=== PATIENT | female | born 1985 | race Caucasian/White ===

== ENCOUNTER 2016-04-15 01:31 | Emergency (ER) | payer MEDICAID ==
[~2016-04-15] VITALS: Wt 69.0 kg
[~2016-04-15 01:31] MED LIST: ACET500T98; HYDR-902 PO; ONDA4TAB14 PO
[2016-04-15 02:06] LABS: URINE BLOOD (Dip) POC 2+ (NEGATIVE)
[2016-04-15 02:46] VITALS: BP 123/72; PULSE 70; RESP 16; TEMP 98.6
--- NOTE | 2016-04-15 02:46 | ERD ---
ER Documentation Chief Complaint Date/Time DATE: 04/15/16 TIME: 02:44 Chief Complaint painful/frequent urination x 4 hours HPI 30-year-old female presents here in emergency department for complaints of dysuria, urinary urgency and frequency started today. Patient is complaining of pain, burning pain, 4/10 scale, is worse upon urination. Patient denies any vaginal itching or vaginal discharge. Patient denies any flank pain. Patient denies any nausea or vomiting. Patient denies any abdominal pain. Patient did not take any medications to help with symptoms. ROS All systems reviewed and are negative except as per history of present illness. Medications Home Meds Reported Medications [none] Unknown Strength No Conflict Check 04/15/16 Allergies Allergies: Coded Allergies: No Known Allergy (Verified , 04/15/16) PMhx/Soc Medical and Surgical Hx: pt denies Medical Hx, pt denies Surgical Hx History of Surgery: No Anesthesia Reaction: No Hx Neurological Disorder: No Hx Respiratory Disorders: No Hx Cardiac Disorders: No Hx Psychiatric Problems: No Hx Miscellaneous Medical Probl: No Hx Alcohol Use: No Hx Substance Use: No Hx Tobacco Use: No Smoking Status: Never smoker FmHx Family History: No coronary disease, No diabetes, No other Physical Exam Vitals Vital Signs Date Time Temp Pulse Resp B/P Pulse Ox O2 Delivery O2 Flow Rate FiO2 04/15/16 01:34 97.6 81 20 148/88 98 Physical Exam GENERAL: The patient is well developed and appropriate for usual state of health, in no apparent distress. CHEST: Clear to auscultation bilaterally. There are no rales, wheezes or rhonchi. HEART: Regular rate and rhythm. No murmurs, clicks, rubs or gallops. No S3 or S4. ABDOMEN: Soft, nontender and nondistended. Good bowel sounds. No rebound or guarding. No gross peritonitis. No gross organomegaly or masses. No Cast sign or McBurney point tenderness. BACK: No midline or flank tenderness. EXTREMITIES: Equal pulses bilaterally. There is no peripheral clubbing, cyanosis or edema. No focal swelling or erythema. Full range of motion. Grossly neurovascularly intact. NEURO: Alert and oriented. Cranial nerves 2-12 intact. Motor strength in all 4 extremities with 5/5 strength. Sensation grossly intact. Normal speech and gait. SKIN: There is no apparent rash or petechia. The skin is warm and dry. HEMATOLOGIC AND LYMPHATIC: There is no evidence of excessive bruising or lymphedema. No gross cervical, axillary, or inguinal lymphadenopathy. Results 24 hrs Laboratory Tests Test 04/15/16 02:08 Bedside Urine Blood 2+ Bedside Urine Glucose (UA) Negative Bedside Urine Ketones (LAB) Negative Bedside Urine Leukocyte Esterase (L 1+ Bedside Urine Nitrite (LAB) Negative Bedside Urine Protein (LAB) Negative Bedside Urine pH (LAB) 6.5 Urine test is negative. Procedures/MDM Medical Decision Making: Patients symptoms are consistent with urinary tract infection. There is low suspicion for pyelonephritis. There is low suspicion for abdominal emergencies at this time. Patients abdominal exam is normal. There is low suspicion for sepsis. Patient appears well and is hemodynamically stable. Prescription was given for Macrobid, Pyridium, is advised to follow-up with her doctor in 2-3 days for reevaluation of symptoms. Patient was advised to return to emergency department for any worsening symptoms. Departure Diagnosis: Primary Impression: UTI (urinary tract infection) Urinary tract infection type: acute cystitis Hematuria presence: with hematuria Qualified Code: N30.01 - Acute cystitis with hematuria Condition: Stable Patient Instructions: Understanding Urinary Tract Infections (UTIs) ALECIA ROBISON NP Apr 15, 2016 02:46
[2016-04-15] MEDS ORDERED: NITR-58 PO (02:47)
[2016-04-15] MEDS ORDERED: PHEN-538 PO (02:47)
== END 2016-04-15 02:50 | disposition home or self-care (01) ==
LOC: FTE 01:31
DX: N30.01 Acute cystitis with hematuria (principal)
CPT/HCPCS: 81003; Z7502; 99283

== ENCOUNTER 2017-09-29 04:15 | Emergency (ER) | END 2017-09-29 04:49 | disposition home or self-care (01) ==

== ENCOUNTER 2018-05-27 17:45 | Emergency (ER) | payer MEDICAID ==
[~2018-05-27] VITALS: Ht 152.4 cm; Wt 68.4 kg
[~2018-05-27 17:45] MED LIST changes: +HYDR-3980 PO; -HYDR-902 PO; +NITR-58 PO; +PHEN-538 PO
[2018-05-27 17:51] VITALS: BP 126/83; PULSE 64; RESP 19; Ht 152.4 cm; Wt 68.4 kg
[2018-05-27] MEDS ORDERED: NITR-58 PO (18:21)
[2018-05-27] MEDS ORDERED: IBUP-1542 PO (18:21)
[2018-05-27] MEDS ORDERED: IBUPROFEN 600 MG TAB PO ONE (18:30)
--- NOTE | 2018-05-27 18:43 | ERD ---
ER Documentation Chief Complaint Chief Complaint painful urination x 2 days, diarrhea HPI 33-year-old female previously healthy presenting with burning with urination and suprapubic pain for the past 3 days. She states that the end of urination, she feels a pressure in her suprapubic area. She has some pain in her lower back as well. She endorses chills but no fever, nausea, vomiting, flank pain. Her stools are also more loose than usual. She has been taking Azo without any relief of her symptoms. Her last menstrual period was about 1 month ago. ROS All systems reviewed and are negative except as per history of present illness. Medications Home Meds Active Scripts Ibuprofen* (Motrin*) 600 Mg Tab, 600 MG PO Q6H PRN for PAIN AND OR ELEVATED TEMP, #30 TAB Prov:LILIANA ALEJO MD 05/27/18 Nitrofurantoin Monohyd Macrocr* (Macrobid*) 100 Mg Capsr, 100 MG PO BID for 5 Days, CAP Prov:LILIANA ALEJO MD 05/27/18 Phenazopyridine Hcl* (Pyridium*) 200 Mg Tab, 200 MG PO TID PRN for URINARY PAIN, #6 TAB Prov:ALECIA ROBISON NP 09/29/17 Nitrofurantoin Monohyd Macrocr* (Macrobid*) 100 Mg Capsr, 100 MG PO BID for 7 Days, CAP Prov:ALECIA ROBISON NP 09/29/17 Phenazopyridine Hcl* (Pyridium*) 200 Mg Tab, 200 MG PO TID PRN for URINARY PAIN, #6 TAB Prov:ALECIA ROBISON NP 04/15/16 Nitrofurantoin Monohyd Macrocr* (Macrobid*) 100 Mg Capsr, 100 MG PO BID for 7 Days, CAP Prov:ALECIA ROBISON NP 04/15/16 Ondansetron (Ondansetron Odt) 4 Mg Tab.rapdis, 4 MG PO Q6H PRN for NAUSEA AND/OR VOMITING, #10 TAB Prov:SAGE WELLS PA-C 01/23/16 Hydrocodone/Acetaminophen (Joseph 10-325 Tablet) 1 Each Tablet, 1 TAB PO Q6H PRN for PAIN, #7 TAB Prov:VELVETJellyJEMGaye Ralf CLIFTON 01/23/16 Reported Medications [none] Unknown Strength No Conflict Check 04/15/16 Acetaminophen (Tylenol) 500 Mg Tab 05/16/11 Allergies Allergies: Coded Allergies: No Known Drug Allergies (Verified Allergy, Mild, 04/15/16) PMhx/Soc Medical and Surgical Hx: pt denies Medical Hx History of Surgery: Yes ( x2) Anesthesia Reaction: No Hx Neurological Disorder: No Hx Respiratory Disorders: No Hx Cardiac Disorders: No Hx Psychiatric Problems: No Hx Miscellaneous Medical Probl: No Hx Alcohol Use: No Hx Substance Use: No Hx Tobacco Use: No Smoking Status: Never smoker FmHx Family History: No diabetes Physical Exam Vitals Vital Signs Date Temp Pulse Resp B/P (MAP) Pulse Ox O2 O2 Flow FiO2 Time Delivery Rate 05/27/18 97.6 64 19 126/83 100 17:51 (97) Physical Exam Const: No acute distress Head: Atraumatic Resp: No respiratory distress Abd: Soft, minimal suprapubic tenderness with no rebound or guarding, non distended. No McBurney's point tenderness. Normal bowel sounds Back: No midline or flank tenderness Ext: No cyanosis, or edema Neur: Awake and alert Psych: Normal Mood and Affect Results 24 hrs Laboratory Tests Test 05/27/18 18:29 05/27/18 18:38 POC Beta HCG, Qualitative NEGATIVE Bedside Urine pH (LAB) 5.5 Bedside Urine Protein (LAB) Negative Bedside Urine Glucose (UA) Negative Bedside Urine Ketones (LAB) Negative Bedside Urine Blood 2+ Bedside Urine Nitrite (LAB) Negative Bedside Urine Leukocyte Esterase (L 2+ Current Medications Medications Dose Sig/Bobby Start Time Status Last (Trade) Ordered Route PRN Stop Time Admin Dose Reason Admin Ibuprofen 600 mg ONCE ONCE 05/27/18 DC 05/27/18 (Motrin) PO 18:30 18:31 05/27/18 18:31 Procedures/MDM Patient is presenting with symptoms consistent with UTI. Doubt PID. Doubt acute surgical abdomen. She was given ibuprofen for her pain. Prescription for Macrobid and ibuprofen given. Urinalysis is consistent with possible UTI. Return precautions were given. No evidence of pyelonephritis at this time. Follow-up with PCP recommended if her symptoms are not improving in the next 48 hours on antibiotics. Patient's blood pressure was elevated (>120/80) but appears stable without evidence of hypertension emergency or urgency. The patient was counseled about the risks of hypertension and urged to pursue outpatient monitoring and therapy within a week with their primary care physician. Departure Diagnosis: Primary Impression: UTI (urinary tract infection) Urinary tract infection type: acute cystitis Hematuria presence: without hematuria Qualified Codes: N30.00 - Acute cystitis without hematuria Condition: Stable Patient Instructions: Understanding Urinary Tract Infections (UTIs) Additional Instructions: Si no estas mejorando en 2-3 hernandez, ir a post medico primario. LILIANA ALEJO MD May 27, 2018 18:42
== END 2018-05-27 19:42 | disposition home or self-care (01) ==
LOC: FTE 17:45
DX: N30.00 Acute cystitis without hematuria (principal)
CPT/HCPCS: 81001; 81025; Z7502; Z7610; 81003; 99283

== ENCOUNTER 2018-10-15 18:24 | Emergency (ER) | payer MEDICAID ==
[~2018-10-15] VITALS: Wt 67.9 kg
[~2018-10-15 18:24] MED LIST changes: +IBUP-1542 PO
[2018-10-15] MEDS ORDERED: FAMOTIDINE 20 MG TAB PO STA (20:41)
[2018-10-15] MEDS ORDERED: ONDANSETRON (ODT) 4 MG TAB ODT STA (20:41)
[2018-10-15] MEDS ORDERED: IBUPROFEN 600 MG TAB PO ONE (21:00)
[2018-10-15 22:31] VITALS: BP 112/67; PULSE 58; RESP 18
== END 2018-10-15 22:31 | disposition home or self-care (01) ==
LOC: FTE 18:24
DX: N30.01 Acute cystitis with hematuria (principal)
CPT/HCPCS: 36415; 80053; 81001; 81025; 83690; 85025; Z7502; Z7610; 81003; 99283